=== PATIENT | female | born 1975 | race Caucasian/White ===

== ENCOUNTER 2017-03-15 12:14 | Emergency (ER) | payer SELFPAY ==
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
== END 2017-03-15 13:28 | disposition home or self-care (01) ==
LOC: NAV ERS 12:14
DX: S40.012A Contusion of left shoulder, initial encounter (principal); I10 Essential (primary) hypertension; V49.9XXA Car occupant (driver) (passenger) injured in unspecified traffic accident, initial encounter